=== PATIENT | female | born 1990 | race Caucasian/White ===

== ENCOUNTER 2017-03-14 21:14 | Emergency (ER) | payer OTHER ==
[2017-03-14 21:32] VITALS: TEMP 98.5; BMI 20.1
--- NOTE | 2017-03-14 22:20 | PDOC ---
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 The patient describes the back pain as diffuse and made worse with movement. She reports associated symptoms of right lower extremity pain and shortness of breath secondary to pain. The patient reports she took Tylenol for pain management with mild relief. She denies recent fevers, chills, headache or dizziness. She denies recent nausea, vomit, diarrhea or constipation. She denies recent chest pain or shortness of breath. Allergies: NKA Past surgical history: None reported. Social history: Nonsmoker. Denies EtOH use and recreational drug use. Primary Care Physician: Dr. Jacinda Zee <De Diaz - Last Filed: 03/15/17 00:58> <Leonard Montano - Last Filed: 03/15/17 01:31> - General Chief Complaint: Back Pain Stated Complaint: back pain Time Seen by Provider: 03/14/17 22:18 Past History <De Diaz - Last Filed: 03/15/17 00:58> - Past Medical History Asthma: No Cancer: No Cardiac Disorders: No Diabetes: No HTN: No Seizures: No Thyroid Disease: No - Reproductive History (#): 1 Para: 0 Therapeutic (s) & number: No Spontaneous : 0 - Psycho/Social/Smoking Cessation Hx Anxiety: No Suicidal Ideation: No Smoking History: Never smoked Have you smoked in the past 12 months: No Information on smoking cessation initiated: No Hx Alcohol Use: No Drug/Substance Use Hx: No Substance Use Type: None Hx Substance Use Treatment: No <Leonard Montano - Last Filed: 03/15/17 01:31> - Past Medical History Allergies/Adverse Reactions: Allergies Allergy/AdvReac Type Severity Reaction Status Date / Time No Known Allergies Allergy Verified 03/14/17 21:32 Review of Systems - Review of Systems Comments:: 03/15/17 22:18 CONSTITUTIONAL: No fever, no chills, no fatigue EYES: No visual changes ENT: No ear pain, no sore throat CARDIOVASCULAR: No chest pain, no palpitations RESPIRATORY: No cough, no SOB GI: No abdominal pain, no nausea, no vomiting, no constipation, no diarrhea GENITOURINARY: No dysuria, no frequency, no hematuria MUSKULOSKELETAL: +Left shoulder pain. +Diffuse back pain. +Posterior right leg pain SKIN: No rash NEURO: No headache <De Diaz - Last Filed: 03/15/17 00:58> *Physical Exam - Vital Signs Last Vital Signs Temp Pulse Resp BP Pulse Ox 98.5 F 106 H 18 131/74 100 03/14/17 21:30 03/14/17 21:30 03/14/17 21:30 03/14/17 21:30 03/14/17 21:30 - Physical Exam Comments: 03/15/17 22:18 CONSTITUTIONAL: Well-appearing; well-nourished. HEAD: Normocephalic; atraumatic EYES: PERRL; EOM intact ENMT: External appears normal; normal oropharynx NECK: Supple; non-tender; no cervical lymphadenopathy CARD: Normal S1, S2; no murmurs, rubs, or gallops RESP: Normal chest excursion with respiration; breath sounds clear and equal bilaterally; no wheezes, rhonchi, or rales ABD: Soft, non-distended; non-tender; no palpable organomegaly, no palpable hernias EXT: Normal ROM in all four extremities; distal pulses intact SKIN: Warm, dry, no rash NEURO: No focal neurological deficiencies. BACK: +Diffuse paraspinal tenderness. <De Diaz - Last Filed: 03/15/17 00:58> - Vital Signs Last Vital Signs Temp Pulse Resp BP Pulse Ox 98.5 F 106 H 18 131/74 100 03/14/17 21:30 03/14/17 21:30 03/14/17 21:30 03/14/17 21:30 03/14/17 21:30 <Leonard Montano - Last Filed: 03/15/17 01:31> ED Treatment Course - ADDITIONAL ORDERS Additional order review: Laboratory Results 03/14/17 22:50 Urine Color Yellow Urine Appearance Clear Urine pH 6.0 Urine Protein Negative Urine Glucose (UA) Negative Urine Ketones Negative Urine Blood 3+ H Urine Nitrite Negative Urine Bilirubin Negative Urine Urobilinogen Negative Ur Leukocyte Esterase Trace Urine RBC 3 Urine WBC 7 Ur Epithelial Cells Moderate Urine Bacteria Few Urine Mucus Rare Urine HCG, Qual Negative - Medications Given in the ED: ED Medications Discontinued Medications Generic Name Dose Route Start Last Admin Trade Name Burak PRN Reason Stop Dose Admin Ketorolac Tromethamine 60 mg 03/14/17 23:16 03/14/17 23:46 Toradol Injection - IM 03/14/17 23:17 60 mg ONCE ONE Administration <De Diaz - Last Filed: 03/15/17 00:58> Medical Decision Making - Medical Decision Making 03/15/17 01:29 Patient is a well-appearing 27-year-old female who presents to the ER with musculoskeletal upper and lower back pain for the past several months. In the ER , patient is awake and alert, anxious appearing, with reproducible paraspinal tenderness to palpation to the left upper, right upper and right lower back. Straight leg raise is negative bilaterally. Lungs are clear to auscultation and serial abdominal exams reveal no focal tenderness. There is no CVA tenderness bilaterally. Patient received IM Toradol with significant improvement in level of her pain. I do not suspect PE O cord compression this time. Will discharge with NSAIDs with follow-up. <Leonard Montano - Last Filed: 03/15/17 01:31> *DC/Admit/Observation/Transfer - Attestations Scribe Attestion: 03/15/17 22:18 Documentation prepared by De Diaz, acting as medical economics consultant for Leonard Montano MD. <De Diaz - Last Filed: 03/15/17 00:58> - Attestations Physician Attestion: 03/15/17 01:29 The documentation was prepared by the scribe under my direct supervision. I have reviewed the documentation which correctly represents the findings, medical decision-making and critical action taken by me. <Leonard Montano - Last Filed: 03/15/17 01:31> Diagnosis at time of Disposition: Back pain Qualifiers: Back pain location: thoracic back pain Chronicity: unspecified Back pain laterality: bilateral Qualified Code(s): M54.6 - Pain in thoracic spine - Discharge Dispostion Disposition: HOME Condition at time of disposition: Stable - Referrals Referrals: Jacinda Zee NP [Primary Care Provider] - - Patient Instructions Printed Discharge Instructions: DI for Thoracic Back Pain Print Language: TRISTANIAN
[2017-03-14 23:12] LABS: URINE APPEARANCE CLEAR; URINE BILIRUBIN NEGATIVE (NEGATIVE); URINE BLOOD 3+ (NEGATIVE); URINE COLOR YELLOW; URINE GLUCOSE (UA) NEGATIVE (NEGATIVE); URINE KETONE NEGATIVE (NEGATIVE); URINE LEUK ESTERASE TRACE (NEGATIVE); URINE NITRITE NEGATIVE (NEGATIVE); URINE PROTEIN NEGATIVE (NEGATIVE); URINE UROBILINOGEN NEGATIVE mg/dL (0.2-1.0)
[2017-03-14] MEDS ORDERED: KETOROLAC TROMETHAMINE 60 MG/2 ML VIAL IM ONE (23:16)
[2017-03-14 23:21] LABS: URINE BACTERIA FEW /hpf (NONE SEEN); URINE MUCUS RARE; URINE RBC 3 /hpf (0-3); URINE WBC 7 /hpf (3-5)
[2017-03-14] MEDS ORDERED: KETOROLAC TROMETHAMINE 60 MG/2 ML VIAL ONE (23:38)
[2017-03-15 01:48] VITALS: BP 128/77; PULSE 69
== END 2017-03-15 01:48 | disposition home or self-care (01) ==
LOC: SUPCPDRO 21:14 → JER 21:14 → JERFT 21:14 → JER 03-15 01:48
PROC: 3E0233Z Introduction of Anti-inflammatory into Muscle, Percutaneous Approach (ICD-10-PCS; principal; 2017-03-14)
DX: M54.6 Pain in thoracic spine (principal)
CPT/HCPCS: 81003; 81015; 84703; 87086; 99281-25

== ENCOUNTER 2023-01-10 02:45 | Inpatient (IN) | payer OTHER ==
[2023-01-10] MEDS: ELECTROLYTE-148 SOLN 1,000 ML IV SCH ×2 (03:00→05:00)
[2023-01-10 03:43] VITALS: BMI 35.1
[2023-01-10 04:01] LABS: BASO % 0.4 % (0-2.0); EOS % 0.7 % (0-4.5); HEMATOCRIT 38.6 % (32.4-45.2); HEMOGLOBIN 13.2 GM/dL (10.7-15.3); LYMPH % 23.1 % (8-40); MCH 29.9 pg (25.7-33.7); MCHC 34.1 g/dl (32.0-36.0); MEAN CELL VOLUME 87.7 fl (80-96); MEAN PLT VOLUME 9.6 fl (7.5-11.1); MONO % 7.4 % (3.8-10.2); NEUT % 68.4 % (42.8-82.8); PLATELET COUNT 161 10^3/uL (134-434); RDW 14.6 % (11.6-15.6); WHITE BLOOD COUNT 5.9 K/mm3 (4.0-10.0)
[2023-01-10 04:11] LABS: INR 0.95 (0.83-1.09)
[2023-01-10 04:13] LABS: ACTIVATED PTT 26.6 SECONDS (25.2-36.5)
[2023-01-10 04:14] LABS: CALCIUM 9.3 mg/dL (8.5-10.1)
[2023-01-10 04:15] LABS: BLOOD UREA NITROGEN 7.6 mg/dL (7-18)
[2023-01-10 04:18] LABS: CREATININE 0.4 mg/dL (0.55-1.3)
[2023-01-10] MEDS ORDERED: FENTANYL/BUPIVACAINE/NS/PF - PCEA - 50 ML DISP.SYRIN EP ONE (04:24)
[2023-01-10] MEDS ORDERED: FENTANYL CITRATE/PF 50 MCG/ML VIAL ONE (04:31)
[2023-01-10] MEDS ORDERED: NALOXONE HCL 0.4 MG/ML VIAL IVPUSH PRN (05:12)
[2023-01-10] MEDS ORDERED: FENTANYL/BUPIVACAINE/NS/PF - PCEA - 50 ML DISP.SYRIN EP SCH ×2 (05:15→06:40)
[2023-01-10] MEDS ORDERED: OXYTOCIN 30 UNITS in 0.9% NS 30 UNIT/500 ML INFUS.BAG IVPB SCH ×2 (07:30→08:00)
[2023-01-10] MEDS ORDERED: OXYTOCIN 20 UNITS in 0.9% NS 20 UNIT/1,000 ML INFUS.BAG IV ONE (07:35)
[2023-01-10] MEDS ORDERED: OXYTOCIN 30 UNITS in 0.9% NS 30 UNIT/500 ML INFUS.BAG IVPB ONE (07:35)
[2023-01-10] MEDS ORDERED: LIDOCAINE HCL 1% PRESERVATIVE FREE - 30ML VIAL ONE (08:31)
[2023-01-10] MEDS ORDERED: IBUPROFEN 600 MG TABLET (FP) PO ONE (08:51)
[2023-01-10] MEDS ORDERED: ACETAMINOPHEN 325 MG TABLET (FP) PO PRN (09:13)
[2023-01-10] MEDS ORDERED: BISACODYL 10 MG SUPP.RECT RC PRN (09:13)
[2023-01-10] MEDS ORDERED: WITCH HAZEL 50% (TUCKS) 40 PAD/JAR PAD TP PRN (09:13)
[2023-01-10] MEDS ORDERED: BENZOCAINE 28 GM HEMORRHOIDAL OINTMENT TP PRN (09:13)
[2023-01-10] MEDS ORDERED: METHYLERGONOVINE MALEATE 0.2 MG/1 ML AMP IM PRN (09:13)
[2023-01-10] MEDS ORDERED: BENZOCAINE 20% 57 GM BOTTLE TP PRN (09:13)
[2023-01-10] MEDS ORDERED: METHYLERGONOVINE MALEATE 0.2 MG/1 ML AMP IM ONE (09:14)
[2023-01-10] MEDS: IBUPROFEN 600 MG TABLET (FP) PO PRN (09:15)
[2023-01-10] MEDS ORDERED: OXYTOCIN 20 UNITS in 0.9% NS 20 UNIT/1,000 ML INFUS.BAG IV SCH (09:15)
[2023-01-10] MEDS ORDERED: oxyCODONE HCL 5 MG TABLET ONE (09:31)
[2023-01-10] MEDS: oxyCODONE HCL 5 MG TABLET PO PRN ×2 (09:35→19:57)
[2023-01-10 09:38] LABS: CORD BASE EXCESS -7.8 mmol/L (0-2); CORD HCO3 23.1 mmHg (20-29); CORD PCO2 71.5 mmHg (30-78); CORD pH 7.127 (7.14-7.44)
[2023-01-10 09:43] LABS: CORD BASE EXCESS -5.6 mmol/L (0-2); CORD HCO3 21.3 mmHg (20-29); CORD PCO2 46.7 mmHg (30-78); CORD pH 7.277 (7.14-7.44)
[2023-01-10] MEDS ORDERED: BUTORPHANOL TARTRATE 1 MG/ML VIAL ONE ×3 (09:56→10:00)
[2023-01-10] MEDS ORDERED: MISOPROSTOL 200 MCG TABLET ONE (09:57)
[2023-01-10] MEDS ORDERED: PROMETHAZINE HCL 25 MG/1 ML VIAL ONE ×2 (09:57→10:02)
[2023-01-10] MEDS: MISOPROSTOL 200 MCG TABLET NR ONE ×2 (10:15→19:02)
[2023-01-10] MEDS ORDERED: ACETAMINOPHEN INJECTION 100 ML IVPB ONE (11:27)
[2023-01-10] MEDS ORDERED: BUTORPHANOL TARTRATE 2 MG/ML VIAL IVPUSH PRN (11:37)
[2023-01-10] MEDS ORDERED: PROMETHAZINE HCL 25 MG/1 ML VIAL IVPB PRN (11:38)
[2023-01-10] MEDS ORDERED: ACETAMINOPHEN 1000 MG/100 ML BAG IVPB ONE (12:00)
[2023-01-10] MEDS ORDERED: METHYLERGONOVINE MALEATE 0.2 MG TABLET (FP) PO SCH (22:00)
[2023-01-11] MEDS: IBUPROFEN 600 MG TABLET (FP) PO PRN ×2 (03:44→21:02)
[2023-01-11 07:24] LABS: BASO % 0.5 % (0-2.0); HEMATOCRIT 33.9 % (32.4-45.2); HEMOGLOBIN 11.5 GM/dL (10.7-15.3); LYMPH % 19.7 % (8-40); MCH 30.5 pg (25.7-33.7); MEAN CELL VOLUME 89.6 fl (80-96); MONO % 5.5 % (3.8-10.2); NEUT % 73.3 % (42.8-82.8); PLATELET COUNT 136 10^3/uL (134-434); RBC 3.78 M/mm3 (3.60-5.2); RDW 14.8 % (11.6-15.6); WHITE BLOOD COUNT 8.5 K/mm3 (4.0-10.0)
[2023-01-11] MEDS ORDERED: DIPHTH,PERTUSS(ACELL),TET 0.5 ML DISP.SYRIN IM ONE (10:00)
[2023-01-11 21:49] VITALS: RESP 18
[2023-01-11] MEDS ORDERED: SENNOSIDES/DOCUSATE COMBO (SENNA PLUS) TABLET (UD) PO PRN (22:00)
[2023-01-12] MEDS: ELECTROLYTE-148 SOLN 1,000 ML IV SCH ×2 (05:40→05:41)
[2023-01-12] MEDS: IBUPROFEN 600 MG TABLET (FP) PO PRN (05:41)
[2023-01-12 12:04] VITALS: BP 118/72; PULSE 20; TEMP 98.2
== END 2023-01-12 12:50 | disposition home or self-care (01) | DRG 560 ==
LOC: JLDR 02:45 → J3W 13:05
PROVIDERS: ADMIT Obstetrics & Gynecology; ATTEND Obstetrics & Gynecology
PROC: 10E0XZZ Delivery of Products of Conception, External Approach (ICD-10-PCS; principal; 2023-01-10)
PROC: 0W8NXZZ Division of Female Perineum, External Approach (ICD-10-PCS; 2023-01-10)
DX: O48.0 Post-term pregnancy (principal); O72.1 Other immediate postpartum hemorrhage; Z3A.40 40 weeks gestation of pregnancy; O99.214 Obesity complicating childbirth; Z37.0 Single live birth
CPT/HCPCS: 36415; 36600; 80048; 82803; 85025; 85610; 85730; 86780; 86850; 86900; 86901